=== PATIENT | male | born 1950 | race Two or more races ===

== ENCOUNTER 2018-08-22 14:22 | Outpatient (CLI) | payer OTHER | END 2018-08-22 14:27 | disposition home or self-care (01) | LOC: LAB 14:22 | DX: R31.9 Hematuria, unspecified (principal); Z12.5 Encounter for screening for malignant neoplasm of prostate ==

== ENCOUNTER → 2018-08-24 | Outpatient (CLI) | payer OTHER | END | disposition home or self-care (01) | LOC: TOM 07:53 | DX: R39.89 Other symptoms and signs involving the genitourinary system (principal) ==

== ENCOUNTER 2018-08-30 18:13 | Outpatient (CLI) | payer OTHER | END 2018-08-30 18:23 | disposition home or self-care (01) | LOC: LAB 18:13 | DX: R97.20 Elevated prostate specific antigen [PSA] (principal) ==

== ENCOUNTER 2018-10-11 07:05 | Outpatient (CLI) | payer OTHER | END 2018-10-11 07:19 | disposition home or self-care (01) | LOC: SONOGRAMA 07:05 | DX: R97.20 Elevated prostate specific antigen [PSA] (principal) ==

== ENCOUNTER → 2020-10-06 | Outpatient (CLI) | payer OTHER | END | disposition home or self-care (01) | LOC: LAB 14:20 | PROVIDERS: ATTEND Urology | DX: R97.20 Elevated prostate specific antigen [PSA] (principal); C67.8 Malignant neoplasm of overlapping sites of bladder ==